=== PATIENT | male | born 2000 | race Caucasian/White ===

== ENCOUNTER 2022-05-18 03:14 | Emergency (ER) | payer OTHER ==
[~2022-05-18] VITALS: Ht 165.1 cm; Wt 68.2 kg
[2022-05-18 03:19] VITALS: BP 137/75; TEMP 98
[2022-05-18] MEDS ORDERED: AMOXICILLIN 8751 TAB PO ×2 (03:40→03:44)
[2022-05-18 03:42] VITALS: PULSE 73
== END 2022-05-18 03:42 | disposition home or self-care (01) ==
LOC: COL.ER 03:14 → EDBD 03:15 → COL.ER 03:15
DX: H66.91 Otitis media, unspecified, right ear (principal); Z28.310 Unvaccinated for COVID-19